=== PATIENT | male | born 1985 | race Caucasian/White ===

== ENCOUNTER 2016-10-25 21:40 | Inpatient (IN) | payer SELFPAY ==
--- NOTE | ~2016-10-25 | HP ---
Unit #: [id number] #: [id number] Patient: NORMA HUNT [id number] [place] [address] [id number] MR#: [id number] NAME: NORMA HUNT ROOM: P185 Age: 31 Sex: M Admission Date: 10/25/2016 : 1985 Attending Physician: Pedro Flynn M.D. Admitting Physician: Pedro Flynn M.D. Primary Care Physician: Primary Care Physician No HISTORY AND PHYSICAL HISTORY OF PRESENT ILLNESS Norma is a 31-year-old admitted to [facility] because of his drug use. He shoots Heroin and Methamphetamine. PAST MEDICAL HISTORY 1. Long history of illicit substance abuse to include IV drugs. 2. Hepatitis-C. PAST SURGICAL HISTORY Inguinal hernia. ALLERGIES No known drug allergies. SOCIAL HISTORY Smokes 1 pack per day. Denies alcohol. Admits to a long history of illicit substance abuse to include IV Heroin and Methamphetamine. FAMILY HISTORY Medically noncontributory. REVIEW OF SYSTEMS CONSTITUTIONAL: No fever or chills. HEENT: Denies any sore throat, ear pain or runny nose. CARDIOVASCULAR: Denies chest pain, irregular heart rhythm or palpitations. CHEST: Denies shortness of breath or cough. No hemoptysis. GASTROINTESTINAL: Denies nausea, vomiting, diarrhea or chronic constipation. ENDOCRINE: Denies history of increased thirst or urination. No recent significant weight loss or gain. GENITOURINARY: Denies dysuria, frequency, or hematuria. SKIN: Denies any rashes. HEMATOLOGIC: Denies history of increased bleeding or bruising. MUSCULOSKELETAL: Denies any hot, swollen joints. No generalized muscle pain. NEUROLOGIC: Denies problems with vision or speech. No frequent, severe headaches. No numbness, tingling or weakness in any extremities. Denies loss of bladder or bowel control. CURRENT MEDICATIONS Detox protocol. Lexapro 10 mg q day. Unit #: [id number] #: [id number] Patient: NORMA HUNT PHYSICAL EXAMINATION GENERAL: Alert, well nourished, in no apparent distress. VITAL SIGNS: B/P 100/52, heart rate 70, respirations 16, temp 98.6, WEIGHT: 141 pounds, height 5'8". SKIN: Warm and dry without rash or lesion. HEENT: Normocephalic. TMs not viewed. Oral and nasal passages clear. Conjunctivae clear. PERRLA. EOMs intact. NECK: Supple without lymphadenopathy or thyromegaly. HEART: Regular rate and rhythm without murmur. LUNGS: Clear. ABDOMEN: Soft, nontender. : Not done. EXTREMITIES: No evidence of cyanosis, clubbing or edema. Moves all without focal deficit. NEUROLOGICAL: Grossly within normal limits. Cranial Nerves: II: Visual mathis are intact. III, IV AND : Extraocular movements are intact. Pupils are equal, round and reactive to light. V: Facial sensation is grossly normal. VII: Facial movements and expression are normal. VIII: Auditory acuity grossly intact. IX, X: Uvula is midline. Phonation is normal. XI: Patient shrugs shoulders and turns head normally. XII: Tongue protrudes in the midline. Sensory and Motor Function: Sensory and motor sensation is grossly normal. Motor: moves all extremities well. Coordination: Gait is normal. Deep Tendon Reflexes: Intact. MEDICAL ASSESSMENT AND PLAN 1. Psychiatric admission. RECOMMENDATIONS 1. Psychiatric, per psychiatrist. 2. I see no contraindications to participating in facility's activities. MEDICAL PROGNOSIS Good. MEDICAL CONDITION Stable. Dictated by... Latonya May P.A.-C. ROX/rena TD: 10/27/2016 04:50 JOB #: [id number] Unit #: [id number] #: [id number] Patient: NORMA HUNT HISTORY AND PHYSICAL Page 1 of 1 X Latonya May HISTORY AND PHYSICAL
--- NOTE | ~2016-10-25 | PA ---
Unit #: [id number] #: [id number] Patient: NORMA GUDINO [id number] [facility] [address] [place] [address] [id number] Rai MR#: [id number] NAME: NORMA GUDINO ROOM: P185 Age: 31 Sex: M Admission Date: 10/25/2016 : 1985 Date of Assessment: 10/26/2016 Attending Physician: Pedro Flynn M.D. Admitting Physician: Pedro Flynn M.D. Primary Care Physician: Primary Care Physician No PSYCHIATRIC ASSESSMENT DATE OF SERVICE 10/26/2016. HISTORY OF PRESENT ILLNESS Mr. Gudino is a 31-year-old single white male, who is a resident of [place], [place], is known to us from previous multiple encounters and was self-referred to the hospital on a voluntary basis. CHIEF COMPLAINT "I've been doing really well. I was staying off meth and I got my job back and now I relapsed." HISTORY OF PRESENT ILLNESS Mr. Gudino is a 31-year-old white male with history of bipolar disorder and substance abuse and dependence and reports that he was doing fair fairly well and staying sober and got his job back and "my mom took my sister's cares, and they started accusing me of doing drugs, but I was not and she is at my job, and she fired me, and that is when I relapsed. Two days after I got fired, I got paid and I bought a bunch of Xanax and took all of them and took half a gram of heroin, did want to kill myself. I overdosed and passed out. I woke up on Monday so no one will find me. It just did not work, and I woke up and I tried to overdose again on Monday, but that did not work either and I still want to kill myself, and my girlfriend told me if I do not get any help, she is going to get upset and she will leave me taking medications about a week ago, and I just did not do well, overdosed again." He does report increasing depression, anxiety, feelings of hopelessness and helplessness, and suicidal ideations. SUBSTANCE ABUSE HISTORY The patient has extensive history of substance abuse and dependence including alcohol, cannabis, cocaine, opioids, methamphetamine, and benzodiazepines, and currently opioids appear to be his drug of choice and reports that he has been using a gram of IV heroin on daily basis. PAST PSYCHIATRIC HISTORY The patient has had a history of multiple inpatient psychiatric hospitalizations across different facilities in both sides of the [facility] including at [facility] and [facility] and has been to rehab places and [facility] as well and has a history of poor compliance with treatment recommendations and review of the medical records indicated that he has been diagnosed and treated for bipolar disorder and is supposed to be on lithium and Lexapro, but has been Unit #: [id number] #: [id number] Patient: NORMA GUDINO noncompliant with medications. PAST MEDICAL HISTORY Asthma and hepatitis C. ALLERGIES No known medication allergies. PERSONAL AND SOCIAL HISTORY A 31-year-old white male, who reports that he is single, unemployed, and essentially homeless and has poor social support system. MENTAL STATUS EXAMINATION Young white male, who was casually dressed with fair personal hygiene, appears to be in no acute distress or discomfort. He was awake and alert on interaction with intact orientation to time, place, and person. His mood was anxious and depressed with a congruent affect. His speech was slow and restricted in content. His thought processes were disorganized with some looseness of associations and flight of ideas. His insight and judgment remain significantly impaired. DIAGNOSTIC IMPRESSION Psychiatric: Bipolar disorder, most recent episode depressed, recurrent, moderate, without psychotic features; opioid dependence, moderate and acute withdrawals; benzodiazepine abuse, moderate; methamphetamine abuse, moderate. Medical: None. Stressors: Moderate psychosocial stressors. TREATMENT PLAN 1. The patient has presented with history of mood disorder and substance abuse and dependence and has been decompensating and will need inpatient hospitalization for detoxification, safety, and stabilization. We will start him back on his home medications, and detox protocol will be initiated as well. 2. Supportive therapy was provided to the patient. 3. Safe, structured, and nourishing environment will be provided. ESTIMATED LENGTH OF STAY 5 to 7 days. ABILITY TO HELP SELF Limited. WILLINGNESS TO HELP SELF The patient appears to be willing to help self. STRENGTHS 1. Communicative. 2. Cooperative. PROBLEMS 1. Chronic dysphoric symptoms. 2. Chronic chemical dependency. 3. Poor social support system. DISCHARGE CRITERIA This will be contingent upon the patient's ability to go through detox without having any significant withdrawal symptoms and his ability to stay safe to himself, particularly after discharge from the hospital. Unit #: [id number] #: [id number] Patient: NORMA GUDINO Dictated by... Carolyn Ross/renu TD: 10/26/2016 06:56 JOB #: [id number] PSYCHIATRIC ASSESSMENT Page 1 of 1 X Pedro Flynn MD X PSYCHIATRIC ASSESSMENT
--- NOTE | ~2016-10-25 | PN ---
Unit #: [id number] #: [id number] Patient: NORMA GUDINO [id number] [facility] [address] [place] [address] [id number] I MR#: [id number] NAME: NORMA GUDINO ROOM: P185 Age: 31 Sex: M Admission Date: 10/25/2016 : 1985 Attending Physician: Pedro Flynn M.D. Admitting Physician: Pedro Flynn M.D. Primary Care Physician: Primary Care Physician Rachna GORDON NOTES DATE OF SERVICE 10/28/2016 DISCUSSION Mr. Gudino is a 31-year-old white male who was seen today. Chart was reviewed and case was discussed with the staff. He was lying in his bed and was seen to be anxious, withdrawn, unkempt, disheveled, disorganized, and appears to be in distress or discomfort and goes through detox. Meanwhile, he has been reporting some persistent depression and anxiety and feelings of hopelessness. However, no agitation or aggression has been noted, and he has been taking the medications and tolerating them fairly well. MENTAL STATUS EXAMINATION Young white male who is casually dressed with fair personal hygiene, appears to be in no acute distress or discomfort. The patient was awake and alert on interaction with intact orientation. His mood is anxious with congruent affect. He denies any suicidal or homicidal ideations. His insight and judgment remain slightly impaired. TREATMENT PLAN 1. We will continue him on his current medications and treatment protocol. We will monitor his response to the medications and make further adjustments as needed. 2. We will continue to follow up. Dictated by... Carolyn Ross/bzg TD: 10/28/2016 10:05 JOB #: [id number] Unit #: [id number] #: [id number] Patient: NORMA GUDINO CAMILO GORDON NOTES Page 1 of 1 X Pedro Flynn MD PROGRESS NOTE
--- NOTE | ~2016-10-25 | PN ---
Unit #: [id number] #: [id number] Patient: NORMA GUDINO [id number] [facility] [address] [place] [address] [id number] I MR#: [id number] NAME: NORAM GUDINO ROOM: P185 Age: 31 Sex: M Admission Date: 10/25/2016 : 1985 Attending Physician: Pedro Flynn M.D. Admitting Physician: Pedro Flynn M.D. Primary Care Physician: Primary Care Physician Rachna GORDON NOTES DATE 10/27/2016 DISCUSSION Mr. Gudino is a 31-year-old white male with substance abuse and mood disorder who was seen today and chart was reviewed and case was discussed with the staff. He has been anxious, withdrawn and rather seclusive to himself and appears to be in distress and discomfort as he goes through detox. Meanwhile, he has been cooperative with treatment recommendations and has been taking medications and tolerating them fairly well with no reported side effects. MENTAL STATUS EXAMINATION Young white male who was casually dressed with fair personal hygiene and appears to be in no acute distress or discomfort. He was awake and alert on interaction with intact orientation. His mood was anxious with congruent affect. He denies any suicidal or homicidal ideations. His insight and judgement remains slightly impaired. TREATMENT PLAN 1. Will continue on his current medications and treatment protocol. Will monitor his response and make further adjustments as needed. 2. Will continue to follow up. Dictated by... Carolyn Ross/john TD: 10/27/2016 17:00 JOB #: [id number] Unit #: [id number] #: [id number] Patient: NORMA GUDINO PEAKASANDRA PROGRESS NOTES Page 1 of 1 X Pedro Flynn MD PROGRESS NOTE
--- NOTE | ~2016-10-25 | A ---
[facility] Nutrition Therapy DATE: 10/26/16 Patient: NORMA HUNT Physician: AFAIRF Address: [address] [place] [address] Room/Bed: [address], Zip: [place] [address] Admit Date: 10/25/16 Date of : [birth year] Height: 5 8 Weight: [phone] NUTRITIONAL ASSESSMENT: REASON: NUTRITION RISK POINT- UNINTENTIONAL WEIGHT LOSS PATIENT ADMITTED FOR SI AND DEPRESSION PMH: ASTHMA, HEP C, LONG HX SUBSTANCE ABUSE Anthropometrics: HT: 5'8", WT: 141#, BMI: 21.4, %IBW: 92 Labs: NO LABS AVAILABLE Meds: LEXAPRO, DESYREL, LITHIUM, DETOX PROTOCOL Assessment: PATIENT IS A 31 Y/O MALE ADMITTED FOR SI AND DEPRESSION. PATIENT IS CURRENLTY UNEMPLOYED, ESSENTIALLY HOMELESS, SMOKES 2 PPD, HAS DAILY HEROIN AND METH USE, ONE TIME XANAX USE, AND A HX OF ETOH, MARIJUANA, AND COCAINE USE. PATIENT STATED A POOR APPETITE WITH A 10# WEIGHT LOSS OVER LAST SEVERAL DAYS, AND HE HAS NOT BEEN SLEEPING. PATIENT ALSO STATED HE LACKS THE MOTIVATION TO COMPLETE ADLS. THERE ARE CURRENTLY NO PO INTAKES AVAILABLE. CURRENT PSYCH MEDS MAY CAUSE WEIGHT AND APPETITE FLUCTUATIONS. IT IS NOTED THAT PATIENT HAS BEEN NON-COMPLIANT WITH HIS MEDICATIONS X 1 WEEK PRIOR TO ADMIT. THERE ARE NO SKIN OR GI ISSUES NOTED ATT. PATIENT IS ON A REGULAR DIET WITH LARGE PORTION ENTREES. Dx: UNINTENTIONAL WEIGHT LOSS R/T CURRENT CONDITION, DRUG USE AEB SELF-REPORTED WEIGHT LOSS, DECREASED APPETITE, NUTRITIONAL RISK POINT Intervention: REGULAR DIET, LARGE PORTION ENTREES, MEDS PER MD, DETOX, PSYCH Monitoring, Evaluation and Goals: 1. ADEQUATE PO INTAKES >50% OF MEALS 2. PREVENT, CORRECT MICRO/MACRO NUTRIENT DEFICIENCIES MONITOR: WEIGHTS, LABS, PO/FLUID INTAKES Recommendations: 1. CONTINUE REGULAR DIET AND LARGE PORTION ENTREES TOLERATED 2. ENCOURAGE ADEQUATE PO AND FLUID INTAKES 3. OBTAIN WEIGHTS ROUTINELY (EVERY 3-4 DAYS) RD TO F/U PER PROTOCOL AND PRN R/T PATIENT MILDLY COMPROMISED [facility] Nutrition Therapy DATE: 10/26/16 Patient: NORMA HUNT Physician: PATRICKF Address: [address] [place] [address] Room/Bed: [address], Zip: [place] [address] Admit Date: 10/25/16 Date of : [birth year] Height: 5 8 Weight: [phone] Respectfully, LUIS FERNANDO SANDOVAL RD, LD [facility] cc: client file
--- NOTE | ~2016-10-25 | DS ---
Unit #: [id number] #: [id number] Patient: [facility]UDINO [id number] [facility] [address] [place] [address] [id number] I MR#: [id number] NAME: NORMA GUDINO ROOM: P185 Age: 31 Sex: M Admission Date: 10/25/2016 : 1985 Discharge Date: 10/29/2016 Attending Physician: Pedro Flynn M.D. Primary Care Physician: Primary Care Physician No DISCHARGE SUMMARY IDENTIFYING DATA Mr. Gudino is a 31-year-old single white male who is a resident of [place], [place] and is known to us from previous encounter, was self-referred to the hospital. DISCHARGE DIAGNOSES Psychiatric: Bipolar disorder, most recent episode depressed, recurrent, moderate, without psychotic features; opioid dependence, moderate and acute withdrawals; benzodiazepine dependence, moderate; methamphetamine abuse, moderate. Medical: None. Stressors: Moderate psychosocial stressors. HISTORY OF PRESENT ILLNESS Please see initial psychiatric evaluation for details. PAST PSYCHIATRIC HISTORY Please see initial psychiatric evaluation for details. PAST MEDICAL HISTORY Please see initial psychiatric evaluation for details. HOSPITAL COURSE The [facility] and was oriented to the hospital environment. Routine p.r.n. medications were initiated, and he was started back on his home medications and was closely monitored. He was taking the medications regularly and he is tolerating them fairly well, and was able to show a decent and therapeutic response, and was able to come out of the detox without any complications and as such, it was decided that he will be discharged home and will continue treatment on an outpatient basis. DISCHARGE MEDICATIONS None. DISCHARGE CONDITION Stable. PROGNOSIS Fair. Dictated by... Pedro Flynn M.D. Unit #: [id number] #: [id number] Patient: NORMA GUDINO IAA/modl TD: 10/29/2016 11:49 JOB #: [id number] DISCHARGE SUMMARY Page 1 of 1 X Pedro Flynn MD X DISCHARGE SUMMARY
[2016-10-27 09:40] LABS: BASOPHIL# 0.1 X10e3 (0-0.3); BASOPHIL% 0.7 % (0-2.5); EOSINOPHIL# 0.5 X10e3 (0-0.7); HEMATOCRIT 43.4 % (38.0-50.0); LYMPHOCYTE# 1.7 X10e3 (1.0-3.5); LYMPHOCYTE% 23.1 % (17.0-45.0); MEAN CELL VOLUME 87.9 FL (83-96); MEAN CORPUSCULAR HEMOGLOBIN 28.4 PG (28-34); MEAN CORPUSCULAR HGB CONC 32.2 g/dL (30-36); MEAN PLATELET VOLUME 9.7 FL (6.5-11.5); MONOCYTE# 0.8 X10e3 (0-1.0); MONOCYTE% 10.7 % (3.0-12.0); NEUTROPHIL# 4.5 X10e3 (1.5-7.1); NEUTROPHIL% 59.5 % (40-75); PLATELET COUNT 217 X10e3 (140-420); RED BLOOD COUNT 4.94 X10e (3.90-5.60); RED CELL DISTRIBUTION WIDTH 14.3 % (11.0-15.5); WHITE BLOOD COUNT 7.5 X10e3 (4.0-10.5)
[2016-10-27 09:42] LABS: DIFF IND NO
[2016-10-27 09:51] LABS: URINE BACTERIA AUWI NEG (NEGATIVE); URINE BLOOD NEG (NEG); URINE COLOR DK YELLOW; URINE GLUCOSE NEG (NEG); URINE KETONE TRACE (NEG); URINE LEUKOCYTE ESTERASE TRACE (NEG); URINE NITRATE NEG (NEG); URINE PH 7.5 (5-8); URINE PROTEIN NEG (NEG); URINE SPECIFIC GRAVITY 1.025 (1.003-1.035); URINE SQUAMOUS EPITHELIAL CELL NONE SEEN /[HPF]; UWBCS1 AUWI 0-2 (0-5)
[2016-10-27 09:56] LABS: THYROID STIMULATING HORMONE 0.14 uIU/ml (0.34-5.60)
[2016-10-27 09:58] LABS: URINE APPEARANCE CLOUDY; URINE BILIRUBIN NEG (NEG)
[2016-10-27 10:03] LABS: FREE THYROXIN (T4) 0.72 ng/dL (0.58-1.64)
[2016-10-27 10:19] LABS: ALBUMIN SERUM 3.4 g/dL (3.5-5.0); BILIRUBIN,TOTAL 0.9 mg/dL (0.2-2.0); CALCIUM SERUM 9.1 mg/dL (8.4-10.2); CREATININE SERUM 0.7 mg/dL (0.6-1.4); GLOM FILT RATE Estimated 127.6 mL/min (>60); PROTEIN TOTAL SERUM 6.4 g/dL (6.0-8.3)
[2016-10-27 10:26] LABS: AMPHETAMINE NEG (NEG); BARBITURATES NEG (NEG); BENZODIAZEPINES POS (NEG); COCAINE NEG (NEG); MARIJUANA POS (NEG); OPIATES POS (NEG); TRICYCLIC ANTIDEPRESSANTS NEG (NEG); U METHADONE NEG (NEG)
== END 2016-10-29 10:25 | disposition home or self-care (01) | DRG 885 ==
LOC: P1E 21:40
PROVIDERS: Psychiatry & Neurology Psychiatry
PROC: HZ2ZZZZ Detoxification Services for Substance Abuse Treatment (ICD-10-PCS; principal; 2016-10-25)
DX: F31.32 Bipolar disorder, current episode depressed, moderate (principal); F13.20 Sedative, hypnotic or anxiolytic dependence, uncomplicated; F11.23 Opioid dependence with withdrawal; F15.20 Other stimulant dependence, uncomplicated; Z59.0 Homelessness; Z86.19 Personal history of other infectious and parasitic diseases
CPT/HCPCS: 80053; 80178; 80307; 81003; 84439; 84443; 85025; 86592